=== PATIENT | female | born 1950 | race African-American/Black ===

== ENCOUNTER 2018-01-05 08:44 | Day surgery (SDC) | payer OTHER ==
[2017-12-27 13:38] VITALS: BMI 34.2
[2018-01-05 09:08] VITALS: TEMP 97.8
[2018-01-05] MEDS ORDERED: PROPOFOL 20 ML ONE ×2 (10:18)
[2018-01-05 11:51] VITALS: BP 110/88; PULSE 81
--- NOTE | 2018-01-07 15:10 | PATH ---
Surgical Pathology Report Patient Name: ROM SALMERON [facility]. Rec. #: [id number] /Age/Gender: 1950 (Age: 67) / F Account: [id number] Location: [facility] Taken: 01/05/2018 Received: 01/05/2018 Reported: 01/07/2018 Physicians: Alicia Galvin M.D. Specimen(s) Received A: BX CECUM B: DESCENDING COLON, 30 CM Clinical History Rule out colon cancer Postoperative diagnosis: polyp Final Diagnosis A. CECUM, BIOPSY: POLYPOID COLONIC MUCOSA WITH SMALL LYMPHOID AGGREGATE. B. DESCENDING COLON, BIOPSY: HYPERPLASTIC POLYP. Electronically Signed Alicia Barker M.D. Gross Description A. Received in formalin, labeled "cecum" is a hodges, irregular portion of soft tissue measuring 0.2 cm. in greatest dimension. The specimen is submitted in toto in one cassette. B. Received in formalin, labeled "descending colon" are 2 hodges, irregular portions of soft tissue measuring 0.1 and 0.2 cm. in greatest dimension. The specimens are submitted in toto in one cassette. DL01/06/2018 saudi01/06/2018
== END 2018-01-05 11:50 | disposition home or self-care (01) ==
LOC: FASU-ENDO 08:44
PROVIDERS: ATTEND Internal Medicine Gastroenterology
PROC: 0DBK8ZX Excision of Ascending Colon, Via Natural or Artificial Opening Endoscopic, Diagnostic (ICD-10-PCS; principal; 2018-01-05 10:54)
PROC: 0DBM8ZX Excision of Descending Colon, Via Natural or Artificial Opening Endoscopic, Diagnostic (ICD-10-PCS; 2018-01-05 10:54)
DX: Z86.010 Personal history of colon polyps (principal); Z80.0 Family history of malignant neoplasm of digestive organs; K63.5 Polyp of colon; K64.2 Third degree hemorrhoids; K57.30 Diverticulosis of large intestine without perforation or abscess without bleeding
CPT/HCPCS: 88305-TC

== ENCOUNTER 2022-12-23 09:29 | Day surgery (SDC) | payer OTHER ==
[2022-12-17 13:34] VITALS: BMI 34.7
[2022-12-23 12:03] VITALS: TEMP 97.8
[2022-12-23 12:38] VITALS: BP 115/60; PULSE 66; RESP 16
== END 2022-12-23 13:08 | disposition home or self-care (01) ==
LOC: FASU-ENDO 09:29
PROVIDERS: ATTEND Internal Medicine Gastroenterology
PROC: 0DBN8ZX Excision of Sigmoid Colon, Via Natural or Artificial Opening Endoscopic, Diagnostic (ICD-10-PCS; principal; 2022-12-23 11:33)
DX: Z12.11 Encounter for screening for malignant neoplasm of colon (principal); K63.5 Polyp of colon; K64.2 Third degree hemorrhoids; K57.30 Diverticulosis of large intestine without perforation or abscess without bleeding; Z86.010 Personal history of colon polyps

== ENCOUNTER 2023-02-24 10:44 | Day surgery (SDC) | payer OTHER ==
[2023-02-22 13:33] VITALS: BMI 34.7
[2023-02-24 10:57] VITALS: PULSE 86
[2023-02-24] MEDS ORDERED: ONDANSETRON 4 MG/2 ML VIAL ONE (11:42)
[2023-02-24] MEDS ORDERED: PROPOFOL 120 ML ONE (11:54)
[2023-02-24 12:20] VITALS: RESP 16; TEMP 98.3
[2023-02-24 12:38] VITALS: BP 116/60
== END 2023-02-24 12:38 | disposition home or self-care (01) ==
LOC: FASU-ENDO 10:44
PROVIDERS: ATTEND Internal Medicine Gastroenterology
PROC: 0DB68ZX Excision of Stomach, Via Natural or Artificial Opening Endoscopic, Diagnostic (ICD-10-PCS; 2023-02-24)
PROC: 0DB48ZX Excision of Esophagogastric Junction, Via Natural or Artificial Opening Endoscopic, Diagnostic (ICD-10-PCS; 2023-02-24)
PROC: 0DB98ZX Excision of Duodenum, Via Natural or Artificial Opening Endoscopic, Diagnostic (ICD-10-PCS; principal; 2023-02-24 11:55)
DX: K29.50 Unspecified chronic gastritis without bleeding (principal); K21.00 Gastro-esophageal reflux disease with esophagitis, without bleeding